=== PATIENT | male | born 1965 | race Hispanic/Latino ===

== ENCOUNTER 2017-02-13 15:53 | Emergency (ER) | payer SELFPAY ==
[2017-02-13 15:58] VITALS: BP 113/77; PULSE 90; RESP 20; TEMP 98.4; O2SAT 97
[2017-02-13] MEDS ORDERED: Oxycodone/Acetaminophen 5/325 mg Tab PO STA (16:21)
--- NOTE | 2017-02-13 16:21 | C.PDOC ---
History Of Present Illness 51 yo male come in for evaluation of Right eyebrow painful swelling gradually worsen for past 2 weeks. Pt sts, noted more swelling over Right eye, redness for past 2 days. Otherwise, pt denies fever, chills, headache, dizziness, visual changes, blurry vision, eye discharge, known trauma or injury, denies nay other active complaints. Ambulate to ED for evaluation, not in any apparent distress. Time Seen by Provider: 02/13/17 16:02 Chief Complaint (Nursing): Abnormal Skin Integrity History Per: Patient History/Exam Limitations: no limitations Onset/Duration Of Symptoms: Gradual (2 weeks ) Past Medical History Reviewed: Historical Data, Nursing Documentation, Vital Signs Vital Signs: Last Vital Signs Temp 98.4 F 02/13/17 15:56 Pulse 90 02/13/17 15:56 Resp 20 02/13/17 15:56 BP 113/77 02/13/17 15:56 Pulse Ox 97 02/13/17 16:49 Family History: States: No Known Family Hx - Social History Hx Alcohol Use: No Hx Substance Use: No Review Of Systems Except As Marked, All Systems Reviewed And Found Negative. Constitutional: Negative for: Fever, Chills Eyes: Positive for: Redness (Right eye ), Other ((+) Painful swelling to the right eyebrow. ). Negative for: Vision Change ENT: Negative for: Ear Discharge Neurological: Negative for: Headache, Dizziness Physical Exam - Physical Exam Appears: Well, Non-toxic, No Acute Distress Skin: Normal Color, Warm, Other (Right eyebrow: tender mass 2cm diameterm erythema, (+) flactulance.) Head: Atraumatic, Normacephalic Eye(s): bilateral: PERRL, EOMI, right: Other (mild edema and erythema over Right upper eyelid extend from Rt eyebrow abscess.), left: Normal Inspection Ear(s): Bilateral: Normal Nose: Normal Oral Mucosa: Moist Tongue: Normal Appearing Throat: Normal Neck: Normal, Normal ROM, Supple Lymphatic: Normal Exam, No Adenopathy Neurological/Psych: Oriented x3, Normal Speech, Normal Motor, Normal Sensation, Normal Reflexes ED Course And Treatment O2 Sat by Pulse Oximetry: 97 Progress Note: On re-evaluation, pt is afebrile, hemodynamicaly stable. non- toxic. Right eyebrow: small abscess s/p I&D. No evidence of periorbital cellulitis. No pain or limitation on extraocular movement. Neurologicaly intact. Pt advised on course of ds. ref. to /[facility] [place] PMD, ENT in 2 days for re -eavl. return if any new changes. - Incision & Drainage Of Abscess Anesthesia: Lidocaine 2% Prep Used: Betadine Procedure: Incised W/Scalpel Blade#: (11), Drained Pus, Irrigated Cavity W/ Saline Medical Decision Making Medical Decision Making: PLAN: * Doxycycline PO * Percocet PO Disposition Counseled Patient/Family Regarding: Diagnosis, Need For Followup, Rx Given - Disposition Referrals: Remberto Ojeda DO [Staff Provider] - Disposition: HOME/ ROUTINE Disposition Time: 16:39 Condition: STABLE Additional Instructions: Warm compresses to area 2-3 times daily for 5 minutes Take medication as prescribed Follow up with PMD, ENT in 2-3 days for re-evaluation. Return to Ed if any worsening ro new changes. 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 - Scribe Statement The provider has reviewed the documentation as recorded by the Scribe Sabrina Dejesus All medical record entries made by the Scribe were at my direction and personally dictated by me. I have reviewed the chart and agree that the record accurately reflects my personal performance of the history, physical exam, medical decision making, and the department course for this patient. I have also personally directed, reviewed, and agree with the discharge instructions and disposition.
[2017-02-13] MEDS ORDERED: Oxycodone/Acetaminophen 5/325 mg Tab ONE (16:24)
== END 2017-02-13 16:53 | disposition home or self-care (01) ==
LOC: C.ER 15:53
DX: H00.031 Abscess of right upper eyelid (principal)